=== PATIENT | male | born 1990 | race Caucasian/White ===

== ENCOUNTER → 2016-11-29 | Outpatient (CLI) | payer OTHER | LOC: MW.CHFP 09:53 | PROVIDERS: ATTEND Family Medicine | DX: J02.9 Acute pharyngitis, unspecified (principal) | CPT/HCPCS: 87880 ==

== ENCOUNTER 2020-01-11 15:18 | Emergency (ER) | payer BC, OTHER ==
[2020-01-11] MEDS ORDERED: Tetracaine HCl/PF 0.5% 4 ML Bottle EYELF ONE (15:53)
[2020-01-11] MEDS ORDERED: Diphtheria,Pertussis(Acell),Tetanus Vaccine 0.5 ML Syringe IM ONE (15:53)
[2020-01-11] MEDS ORDERED: Polymyxin B/Trimethoprim 10 ML Bottle EYELF ONE (16:10)
--- NOTE | 2020-01-11 16:13 | EDM.PDOC ---
ED HPI GENERAL MEDICAL PROBLEM - General Chief Complaint: Eye Problems Stated Complaint: SOMETHING IN EYE Time Seen by Provider: 01/11/20 15:31 Source of Information: Reports: Patient History Limitations: Reports: No Limitations - History of Present Illness INITIAL COMMENTS - FREE TEXT/NARRATIVE: HISTORY AND PHYSICAL: History of present illness: Patient is a 29-year-old male who presents to the emergency room with concerns of a foreign body in his left eye. He states approximately 1 hour prior to arrival he had some irritation and redness. He states he can see a foreign body on the iris. Denies any injury, trauma or falls. No recent welding or activities where he would have gotten metal shavings in his eye. Offers no systemic complaints. Review of systems: As per history of present illness and below otherwise all systems reviewed and negative. Past medical history: As per history of present illness and as reviewed below otherwise noncontributory. Surgical history: As per history of present illness and as reviewed below otherwise noncontributory. Social history: See social history for further information Family history: As per history of present illness and as reviewed below otherwise noncontributory. Physical exam: General: Well-developed and well-nourished 29-year-old male. Alert and oriented. Nontoxic-appearing and in no acute distress. HEENT: Atraumatic, normocephalic, pupils equal and reactive bilaterally, negative for conjunctival pallor or scleral icterus, scleral injection of the left eye with a pinpoint foreign body at the 4 o'clock position on the iris. No ocular pain with movement, no impingement noted. Mucous membranes moist, TMs normal bilaterally, throat clear, neck supple, nontender, trachea midline. No drooling or trismus noted. No meningeal signs. No hot potato voice noted. Lungs: Clear to auscultation, breath sounds equal bilaterally. Heart: S1S2, regular rate and rhythm without overt murmur Abdomen: Soft, nondistended, nontender. Skin: Intact, warm, dry. No lesions or rashes noted. Extremities: Atraumatic, moves all extremities per self without difficulty or deficits. Neurovascular unremarkable. Neuro: Awake, alert, oriented. Cranial nerves II through XII unremarkable. Cerebellum unremarkable. Motor and sensory unremarkable throughout. Exam nonfocal. Notes: She will acuity is within normal limits. He does not wear glasses or contact lenses. Tetracaine was applied to the eye for comfort. Fluorescein eye exam was done, no abrasions are noted at this time. There is a pinpoint foreign body noted at the floor o'clock position of the left iris. Initially attempted to remove foreign body with a cotton swab, this was just full. Did use a small gauge 27 to gently scrape the foreign body off, this was done on first attempt. Patient tolerated well. We did discuss to follow-up with ophthalmology on Sunday. Medication and supportive care measures were reviewed and discussed. Voices understanding and is agreeable to plan of care. Denies any further questions or concerns at this time. Diagnostics: None Therapeutics: Tdap, Tetraciaine, Erythromycin ointment Prescription: Polytrim Impression: FB in left eye Plan: 1. Applied to the left eyes 6 times daily over the next 5 to 7 days. 2. I do want you to follow-up with ophthalmology. Call the ophthalmology clinic on Sunday to set up a follow-up appointment. 3. Return to the emergency room as needed and as discussed. Definitive disposition and diagnosis as appropriate pending reevaluation and review of above. left eye Pain Score (Numeric/FACES): 3 - Related Data Allergies Allergy/AdvReac Type Severity Reaction Status Date / Time No Known Allergies Allergy Verified 01/11/20 15:52 Home Meds: Home Meds Polymyxin B/Trimethoprim [PolyTrim Ophth Soln] 1 drp EYELF 6XDAY 7 Days #1 bottle 01/11/20 [Rx] Past Medical History - Past Health History Medical/Surgical History: Denies Medical/Surgical History - Infectious Disease History Infectious Disease History: Reports: Chicken Pox Social & Family History - Family History Family Medical History: Noncontributory - Tobacco Use Smoking Status *Q: Former Smoker Used Tobacco, but Quit: Yes Month/Year Tobacco Last Used: 2011 - Caffeine Use Caffeine Use: Reports: Coffee - Recreational Drug Use Recreational Drug Use: Yes Recreational Drug Type: Reports: Marijuana/Hashish Recreational Drug Use Frequency: Weekly ED ROS GENERAL - Review of Systems Review Of Systems: Comprehensive ROS is negative, except as noted in HPI. ED EXAM GENERAL W FULL EYE - Physical Exam Exam: See Below (See dictation) ED EYE w/ Add Procedure - Eye Procedure Alcaine Drops Administered: Yes (Tetricaine) Eye FB Removal: Removal w/ Cotton Swab, Removal w/ Needle Eye Irrigated w/ Saline (ccs): 50 Antibiotic Oinment/Drps Admin: Left Eye (See NOTE) Course - Vital Signs Last Recorded V/S: Last Vital Signs Temp 97.6 F 01/11/20 15:53 Pulse 65 01/11/20 15:53 Resp 17 01/11/20 15:53 BP 136/79 01/11/20 15:53 Pulse Ox 98 01/11/20 15:53 - Orders/Labs/Meds Orders: Active Orders 24 hr Category Date Time Status Vaccines to be Administered [RC] PER UNIT ROUTINE Care 01/11/20 15:53 Active Visual Acuity [Vision Test] [RC] ASDIRECTED Care 01/11/20 16:13 Active Meds: Medications Discontinued Medications Generic Name Dose Route Start Last Admin Trade Name Freq PRN Reason Stop Dose Admin Diphtheria/Tetanus/Acell Pertussis 0.5 ml 01/11/20 15:53 01/11/20 16:00 Adacel IM 01/11/20 15:54 0.5 ml .ONCE ONE Administration Erythromycin 1 gm 01/11/20 16:31 Erythromycin 0.5% Ophth Oint EYEBOTH 01/11/20 16:32 ONETIME ONE Polymyxin/Trimethoprim Sulfate 1 ml 01/11/20 16:10 Polytrim Ophth Soln EYELF 01/11/20 16:11 ONETIME ONE Tetracaine HCl 1 ml 01/11/20 15:53 01/11/20 15:59 Tetracaine 0.5% Steri-Unit Radha EYELF 01/11/20 15:54 2 drop ASDIRECTED ONE Administration Departure - Departure Time of Disposition: 16:12 Disposition: Home, Self-Care 01 Clinical Impression: Foreign body, eye Qualifiers: Encounter type: initial encounter Laterality: left Qualified Code(s): T15.92XA - Foreign body on external eye, part unspecified, left eye, initial encounter - Discharge Information Prescriptions: Polymyxin B/Trimethoprim [PolyTrim Ophth Soln] 1 drp EYELF 6XDAY 7 Days #1 bottle Instructions: Eye Foreign Body, [id number] Referrals: PCP,None [Primary Care Provider] - Forms: ED Department Discharge Additional Instructions: The following information is given to patients seen in the emergency department who are being discharged to home. This information is to outline your options for follow-up care. We provide all patients seen in our emergency department with a follow-up referral. The need for follow-up, as well as the timing and circumstances, are variable depending upon the specifics of your emergency department visit. If you don't have a primary care physician on staff, we will provide you with a referral. We always advise you to contact your personal physician following an emergency department visit to inform them of the circumstance of the visit and for follow-up with them and/or the need for any referrals to a consulting specialist. The emergency department will also refer you to a specialist when appropriate. This referral assures that you have the opportunity for follow-up care with a specialist. All of these measure are taken in an effort to provide you with optimal care, which includes your follow-up. Under all circumstances we always encourage you to contact your private physician who remains a resource for coordinating your care. When calling for follow-up care, please make the office aware that this follow-up is from your recent emergency room visit. If for any reason you are refused follow-up, please contact the [facility] Emergency Department at and asked to speak to the emergency department charge nurse. [facility] [address] [place] [address] [place] [address] 1. Apply antibiotic drops, one drop to the left eyes 6 times daily over the next 5 to 7 days. 2. I do want you to follow-up with ophthalmology. Call the ophthalmology clinic on Sunday to set up a follow-up appointment. 3. Return to the emergency room as needed and as discussed. Sepsis Event Note (ED) - Evaluation Sepsis Screening Result: No Definite Risk - Focused Exam Vital Signs: Vital Signs Temp Pulse Resp BP Pulse Ox 01/11/20 15:53 97.6 F 65 17 136/79 98 - My Orders Last 24 Hours: My Active Orders 01/11/20 15:53 Vaccines to be Administered [RC] PER UNIT ROUTINE 01/11/20 16:13 Visual Acuity [Vision Test] [RC] ASDIRECTED - Assessment/Plan Last 24 Hours: My Active Orders 01/11/20 15:53 Vaccines to be Administered [RC] PER UNIT ROUTINE 01/11/20 16:13 Visual Acuity [Vision Test] [RC] ASDIRECTED
[2020-01-11] MEDS ORDERED: Erythromycin Base 0.5% Ophth Oint 1 GM Tube EYEBOTH ONE (16:31)
[2020-01-11 19:21] VITALS: BP 132/80; PULSE 68
== END 2020-01-11 16:40 | disposition home or self-care (01) ==
LOC: MW.ED 15:18
DX: T15.92XA Foreign body on external eye, part unspecified, left eye, initial encounter (principal); Z23 Encounter for immunization; Z87.891 Personal history of nicotine dependence
CPT/HCPCS: 65205; 65220; 90471; 90715; 99282; 99283-25